=== PATIENT | male | born 1950 | race Caucasian/White ===

== ENCOUNTER 2021-04-24 14:40 | Day surgery (SDC) | payer OTHER, BC ==
[2021-04-24] MEDS ORDERED: LIDOCAINE HCL 2% 100 MG/5 ML IJ ONE (14:41)
[2021-04-24] MEDS ORDERED: Decadron 4 MG INJ IV ONE (14:41)
[2021-04-24] MEDS ORDERED: DIPRIVAN 200 MG/20 ML IV ONE (16:02)
[2021-04-24] MEDS ORDERED: Lactated Ringers 1,000 ML IV ONE (17:30)
--- NOTE | 2021-04-24 18:26 | XRAY ---
Indication: Right C2-C4 MBB. Intraoperative fluoroscopy provided for 17 seconds. 2 digital spot image submitted for interpretation demonstrates posterior needle tips projecting over the expected right C2-C4 nerve roots. Correlate with intraoperative findings/report.
--- NOTE | 2021-04-24 19:11 | XRAY ---
17 seconds of fluoroscopy was used in surgery for a right C2-C4 MBB.
== END 2021-04-24 16:30 | disposition home or self-care (01) ==
LOC: SDC-PAIN 14:40
PROVIDERS: ATTEND Psychiatry & Neurology Pain Medicine
DX: M47.812 Spondylosis without myelopathy or radiculopathy, cervical region (principal); Z79.899 Other long term (current) drug therapy
CPT/HCPCS: 64490; 64491; 72040; 77002; J1100; J2704

== ENCOUNTER 2021-05-08 07:56 | Day surgery (SDC) | payer OTHER, BC ==
[2021-05-08] MEDS ORDERED: BUPIVACAINE 0.5% VIAL IJ ONE (07:57)
[2021-05-08] MEDS ORDERED: Decadron 4 MG INJ IV ONE (07:57)
[2021-05-08] MEDS ORDERED: DIPRIVAN 200 MG/20 ML IV ONE (09:44)
--- NOTE | 2021-05-08 11:25 | XRAY ---
29 seconds of fluoroscopy was used in surgery for a right C2-C4 MBB.
--- NOTE | 2021-05-08 11:38 | XRAY ---
Indication: Right C2-C4 MBB. Intraoperative fluoroscopy provided for 29 seconds. 2 digital spot image submitted for interpretation demonstrates posterior needle tips projecting over the expected right C2-C4 nerve roots. Correlate with intraoperative findings/report.
[2021-05-08] MEDS ORDERED: Lactated Ringers 1,000 ML IV ONE (15:24)
== END 2021-05-08 10:12 | disposition home or self-care (01) ==
LOC: SDC-PAIN 07:56
PROVIDERS: ATTEND Psychiatry & Neurology Pain Medicine
DX: M47.812 Spondylosis without myelopathy or radiculopathy, cervical region (principal); Z79.899 Other long term (current) drug therapy
CPT/HCPCS: 64490; 64491; 72040; 77002; J1100; J2704

== ENCOUNTER 2021-05-29 10:20 | Day surgery (SDC) | payer OTHER, BC ==
[2021-05-29] MEDS ORDERED: Decadron 4 MG INJ IV ONE (10:21)
[2021-05-29] MEDS ORDERED: Xylocaine 1% Vial 30 ML PF IJ ONE (10:21)
[2021-05-29] MEDS ORDERED: BUPIVACAINE 0.5% VIAL IJ ONE (10:21)
[2021-05-29] MEDS ORDERED: DIPRIVAN 200 MG/20 ML IV ONE ×2 (12:44→12:56)
--- NOTE | 2021-05-29 14:05 | XRAY ---
Indication: Right C2-C4 RFA. Intraoperative fluoroscopy provided for 1 minute. Single digital spot image submitted for interpretation demonstrates posterior needle tips projecting over the expected right C2-C4 nerve roots. Correlate with intraoperative findings/report.
[2021-05-29] MEDS ORDERED: Lactated Ringers 1,000 ML IV ONE (14:06)
--- NOTE | 2021-05-30 13:47 | XRAY ---
1 minute fluoroscopy time in surgery for right C2-C4 RFA.
== END 2021-05-29 13:25 | disposition home or self-care (01) ==
LOC: SDC-PAIN 10:20
PROVIDERS: ATTEND Psychiatry & Neurology Pain Medicine
DX: M47.812 Spondylosis without myelopathy or radiculopathy, cervical region (principal); Z79.899 Other long term (current) drug therapy
CPT/HCPCS: 64633; 64634; 72040; 77002; J1100; J2001; J2704

== ENCOUNTER 2021-08-14 12:03 | Day surgery (SDC) | payer OTHER, BC ==
[2021-08-14] MEDS ORDERED: Depo-Medrol 40 MG/ML IM ONE (12:04)
[2021-08-14] MEDS ORDERED: BUPIVACAINE 0.5% VIAL IJ ONE (12:04)
[2021-08-14] MEDS ORDERED: DIPRIVAN 200 MG/20 ML IV ONE ×2 (14:41)
[2021-08-14] MEDS ORDERED: Lactated Ringers 1,000 ML IV ONE (14:52)
--- NOTE | 2021-08-14 16:44 | XRAY ---
Indication: Right knee injection. Intraoperative fluoroscopy provided for 7 seconds. Single digital spot image submitted for interpretation demonstrates needle tip projecting over the right femur intercondylar notch. Small amount of contrast injected for needle tip placement. Correlate with intraoperative findings/report.
--- NOTE | 2021-08-14 16:47 | XRAY ---
7 seconds of fluoroscopy was used in surgery for a right intra-articular knee injection.
--- NOTE | 2021-08-14 16:54 | XRAY ---
Indication: Left knee injection. Intraoperative fluoroscopy provided for 3 seconds. Single digital spot image submitted for interpretation demonstrates needle tip projecting over the left femur intercondylar notch. Small amount of contrast injected for needle tip placement. Correlate with intraoperative findings/report.
--- NOTE | 2021-08-14 17:06 | XRAY ---
3 seconds of fluoroscopy was used in surgery for a left intra-articular knee injection.
== END 2021-08-14 15:10 | disposition home or self-care (01) ==
LOC: SDC-PAIN 12:03
PROVIDERS: ATTEND Psychiatry & Neurology Pain Medicine
DX: M17.0 Bilateral primary osteoarthritis of knee (principal); Z79.899 Other long term (current) drug therapy
CPT/HCPCS: 20610; 73560; 77002; J1030; J2704; Q9966